=== PATIENT | male | born 1995 | race Caucasian/White ===

== ENCOUNTER 2018-07-27 08:46 | Emergency (ER) | payer BC ==
--- NOTE | 2018-07-27 09:07 | Emergency Department Record ---
History of Present Illness - General Chief Complaint: Shortness of breath Stated Complaint: SHORTNESS OF BREATH Time Seen by Provider: 07/27/18 09:00 Source: Patient, RN notes reviewed Mode of Arrival: Ambulatory - History of Present Illness Initial Comments: patient wake up to today with congestion with difficulty breathing and cough with yellow mucous and he never smoked cigs and he states he has had bronchitis before and allergy problems before. Onset/Timin -: Month(s) Consistency: Intermittent Improves With: Nothing Worsens With: Nothing Associated Symptoms: Cough Treatments Prior to Arrival: None - Related Data Home Oxygen Therapy: No Previous Rx's Medication Instructions Recorded Albuterol Sulfate [Ventolin Hfa] 1 - 2 puff IH .EVERY 4-6 HOURS PRN 07/27/18 #1 inhaler Azithromycin 250 mg PO DAILY #6 tablet 07/27/18 Fluticasone Propionate [Flonase] 2 spray EACH NARES DAILY #1 bottle 07/27/18 Allergies Allergy/AdvReac Type Severity Reaction Status Date / Time No Known Drug Allergies Allergy Verified 07/27/18 08:49 Travel Screening - Travel/Exposure Within Last 30 Days Have you traveled within the last 30 days?: No - Travel/Exposure Within Last Year Have you traveled outside the [place] in the last year?: No - Additonal Travel Details Have you been exposed to anyone with a communicable illness?: No - Travel Symptoms Symptom Screening: None Review of Systems Reviewed: No additional complaints except as noted below Constitutional: Reports: As per HPI. Denies: Chills, Fever, Malaise, Night sweats, Weakness, Weight change Eyes: Reports: As per HPI. Denies: Eye discharge, Eye pain, Photophobia, Vision change ENT: Reports: As per HPI, Congestion. Denies: Dental pain, Ear pain, Epistaxis , Hearing loss Respiratory: Reports: As per HPI, Cough. Denies: Dyspnea, Hemoptysis, Stridor, Wheezes Cardiovascular: Reports: As per HPI. Denies: Arrhythmia, Chest pain, Dyspnea on exertion, Edema, Murmurs, Orthopnea, Palpitations, Paroxysmal nocturnal dyspnea, Rheumatic Fever, Syncope Endocrine: Reports: As per HPI. Denies: Fatigue, Heat or cold intolerance, Polydipsia, Polyuria Gastrointestinal: Reports: As per HPI. Denies: Abdominal pain, Constipation, Diarrhea, Hematemesis, Hematochezia, Melena, Nausea, Vomiting Genitourinary: Reports: As per HPI. Denies: Dysuria, Frequency, Hematuria, Incontinence, Retention, Testicular pain, Testicular mass, Urgency Musculoskeletal: Reports: As per HPI. Denies: Arthralgia, Back pain, Gout, Joint swelling, Myalgia, Neck pain Skin: Reports: As per HPI. Denies: Bruising, Change in color, Change in hair/ nails, Lesions, Pruritus, Rash Neurological: Reports: As per HPI. Denies: Abnormal gait, Confusion, Headache, Numbness, Paresthesias, Seizure, Tingling, Tremors, Vertigo, Weakness Psychiatric: Reports: As per HPI. Denies: Anxiety, Auditory hallucinations, Depression, Homicidal thoughts, Suicidal thoughts, Visual hallucinations Hematological/Lymphatic: Reports: As per HPI. Denies: Anemia, Blood Clots, Easy bleeding, Easy bruising, Swollen glands Past Medical History - SOCIAL HISTORY Smoking Status: Never smoker Alcohol Use: None Drug Use: None - RESPIRATORY Hx Respiratory Disorders: No - CARDIOVASCULAR Hx Cardio Disorders: No - NEURO Hx Neuro Disorders: No - GI Hx GI Disorders: No - Hx Genitourinary Disorders: No - ENDOCRINE Hx Endocrine Disorders: No - MUSCULOSKELETAL Hx Musculoskeletal Disorders: No - PSYCH Hx Psych Problems: No - HEMATOLOGY/ONCOLOGY Hx Hematology/Oncology Disorders: No Family Medical History Any Significant Family History?: No Physical Exam - General General Appearance: Alert, Oriented x3, Cooperative, No acute distress - Head Head exam: Normal inspection - Eye Eye exam: Normal appearance, PERRL Pupils: Normal accommodation - ENT ENT exam: Mucous membranes moist, Normal external ear exam, TM's normal bilaterally, Other (mucous drainage down the back of his throat) Ear exam: Normal external inspection. negative: External canal tenderness Nasal Exam: Normal inspection. negative: Discharge, Sinus tenderness Mouth exam: Normal external inspection, Tongue normal Teeth exam: Normal inspection. negative: Dental caries Throat exam: Normal inspection. negative: Tonsillar erythema, Tonsillar exudate - Neck Neck exam: Normal inspection, Full ROM. negative: Tenderness - Respiratory Respiratory exam: Normal lung sounds bilaterally. negative: Respiratory distress - Cardiovascular Cardiovascular Exam: Regular rate, Normal rhythm, Normal heart sounds - GI/Abdominal GI/Abdominal exam: Soft, Normal bowel sounds. negative: Tenderness - Rectal Rectal exam: Deferred - exam: Deferred - Extremities Extremities exam: Normal inspection, Full ROM, Normal capillary refill. negative: Tenderness - Back Back exam: Reports: Normal inspection, Full ROM. Denies: Muscle spasm, Rash noted, Tenderness - Neurological Neurological exam: Alert, Normal gait, Oriented X3, Reflexes normal - Psychiatric Psychiatric exam: Normal affect, Normal mood - Skin Skin exam: Dry, Intact, Normal color, Warm Course Vital Signs 07/27/18 08:50 Temperature 98.2 F Pulse Rate 69 Respiratory 16 Rate Blood Pressure 131/83 Pulse Ox 97 Disposition Clinical Impression: Bronchitis Sinusitis Qualifiers: Sinusitis location: unspecified location Chronicity: acute Recurrence: non- recurrent Qualified Code(s): J01.90 - Acute sinusitis, unspecified Disposition: Home, Self-Care Condition: (1) Good Instructions: Sinusitis (ED), Acute Bronchitis (ED) Additional Instructions: follow up with family in 4 days Prescriptions: Albuterol Sulfate [Ventolin Hfa] 1 - 2 puff IH .EVERY 4-6 HOURS PRN #1 inhaler PRN Reason: Difficulty In Breathing Azithromycin 250 mg PO DAILY #6 tablet Fluticasone Propionate [Flonase] 2 spray EACH NARES DAILY #1 bottle Time of Disposition: 09:13 Quality - Quality Measures Quality Measures: N/A - Blood Pressure Screening Does Patient Have Any of the Following: No Blood Pressure Classification: Pre-Hypertensive BP Reading Systolic Measurement: 131 Diastolic Measurement: 83 Screening for High Blood Pressure: < Pre-Hypertensive BP, F/U Documented > [ G8950] Pre-Hypertensive Follow-up Interventions: Referral to alternative/primary care provider.
== END 2018-07-27 09:25 | disposition home or self-care (01) ==
LOC: ER 08:46
DX: J20.9 Acute bronchitis, unspecified (principal); J01.90 Acute sinusitis, unspecified
CPT/HCPCS: 99282

== ENCOUNTER 2019-02-01 14:42 | Emergency (ER) | payer BC ==
[2019-02-01] MEDS: IPRATROPIUM/ALBUTEROL (0.5MG/3MG) NEB INH ONE (14:51)
[2019-02-01] MEDS: AZITHROMYCIN 500 MG TABLET PO ONE (14:53)
[2019-02-01] MEDS: PREDNISONE 20 MG TAB PO ONE (14:53)
--- NOTE | 2019-02-01 14:53 | Emergency Department Record ---
History of Present Illness - General Chief Complaint: Difficulty Breathing Stated Complaint: SHORT OF BREATH Time Seen by Provider: 02/01/19 14:46 Source: Patient Mode of Arrival: Ambulatory Limitations: No limitations - History of Present Illness Initial Comments: 23 yo male presents with wheezing, coughing, productive yellow sputum. The onset was this morning. No fever. No blood in the sputum. He states he was normal yesterday. He has a history of wheezing with bronchitis requiring an inhaler several times in the past but states he has never formally been diagnosed with asthma. He does not smoke. No PCP. No NVD. No leg pain or swelling. MD Complaint: Cough, Shortness of breath -: Hour(s) Severity: Moderate Quality: Other Consistency: Constant Improves With: Nothing Worsens With: Coughing Known History Of: Other (Bronchitis with wheezing in his history) Context: Recent URI Associated Symptoms: Cough Treatments Prior to Arrival: None - Related Data Previous Rx's Medication Instructions Recorded Albuterol Sulfate [Ventolin Hfa] 1 - 2 puff IH .EVERY 4-6 HOURS PRN 07/27/18 #1 inhaler Fluticasone Propionate [Flonase] 2 spray EACH NARES DAILY #1 bottle 07/27/18 Albuterol Sulfate [Proair Hfa] 1 - 2 puff IH .EVERY 4-6 HOURS PRN 02/01/19 #1 inhaler Azithromycin 250 mg PO DAILY #4 tablet 02/01/19 Prednisone [Prednisone 20Mg] 20 mg PO BID #10 tab 02/01/19 Allergies Allergy/AdvReac Type Severity Reaction Status Date / Time No Known Drug Allergies Allergy Verified 02/01/19 14:51 Review of Systems Constitutional: Denies: Chills, Fever, Malaise, Weakness Eyes: Denies: Eye discharge, Eye pain, Photophobia, Vision change ENT: Reports: Congestion. Denies: Ear pain, Throat pain Respiratory: Reports: Cough, Dyspnea, Wheezes. Denies: Hemoptysis, Stridor Cardiovascular: Denies: Chest pain, Palpitations, Syncope Endocrine: Denies: Fatigue, Polydipsia, Polyuria Gastrointestinal: Denies: Abdominal pain, Diarrhea, Nausea, Vomiting Genitourinary: Denies: Dysuria, Frequency, Hematuria Musculoskeletal: Denies: Arthralgia, Back pain, Myalgia Skin: Denies: Bruising, Change in color, Rash Neurological: Denies: Confusion, Headache Psychiatric: Denies: Anxiety Hematological/Lymphatic: Denies: Blood Clots, Easy bleeding, Easy bruising, Swollen glands Past Medical History - SOCIAL HISTORY Smoking Status: Never smoker Drug Use: None - RESPIRATORY Hx Respiratory Disorders: No - CARDIOVASCULAR Hx Cardio Disorders: No - NEURO Hx Neuro Disorders: No - GI Hx GI Disorders: No - Hx Genitourinary Disorders: No - ENDOCRINE Hx Endocrine Disorders: No - MUSCULOSKELETAL Hx Musculoskeletal Disorders: No - PSYCH Hx Psych Problems: No - HEMATOLOGY/ONCOLOGY Hx Hematology/Oncology Disorders: No Physical Exam - General General Appearance: Alert, Oriented x3, Cooperative, No acute distress, Other ( No distress, normal work of breathing, no conversational dyspnea) Limitations: No limitations - Head Head exam: Atraumatic, Normal inspection - Eye Eye exam: Normal appearance, PERRL. negative: Conjunctival injection, Scleral icterus - ENT ENT exam: Normal exam, Mucous membranes moist, Normal orophraynx Ear exam: Normal external inspection Nasal Exam: Normal inspection Mouth exam: Normal external inspection Teeth exam: Normal inspection Throat exam: Normal inspection. negative: Tonsillar erythema, Tonsillomegaly, Tonsillar exudate, R peritonsillar mass, L peritonsillar mass - Neck Neck exam: Normal inspection. negative: Lymphadenopathy, Tenderness - Respiratory Respiratory exam: Decreased breath sounds, Prolonged expiratory, Wheezes. negative: Normal lung sounds bilaterally, Accessory muscle use, Chest wall tenderness, Rales, Respiratory distress, Rhonchi, Stridor - Cardiovascular Cardiovascular Exam: Regular rate, Normal rhythm, Normal heart sounds - GI/Abdominal GI/Abdominal exam: Soft. negative: Tenderness - Rectal Rectal exam: Deferred - exam: Deferred - Back Back exam: Reports: Normal inspection, Full ROM. Denies: Muscle spasm, Rash noted, Tenderness - Neurological Neurological exam: Alert, Normal gait, Oriented X3 - Psychiatric Psychiatric exam: Normal affect, Normal mood - Skin Skin exam: Dry, Intact, Normal color, Warm Course - Reevaluation(s) Reevaluation #1: 02/01/19 15:19 The CXR was read as negative for acute process The patient was rechecked. The wheezing was gone on recheck. Calm respirations, non labored Disposition Disposition: Discharge Clinical Impression: Asthmatic bronchitis Qualifiers: Asthma severity: mild Asthma persistence: intermittent Asthma complication type : uncomplicated Qualified Code(s): J45.20 - Mild intermittent asthma, uncomplicated Disposition: Home, Self-Care Condition: (1) Good Instructions: Acute Bronchitis (ED) Additional Instructions: Call your doctor for the next available follow up appointment Return to the ER for a recheck if worse, any new concerns or questions Take the prescriptions provided as directed Review this ER visit and the tests performed with your family doctor Prescriptions: Albuterol Sulfate [Proair Hfa] 1 - 2 puff IH .EVERY 4-6 HOURS PRN #1 inhaler PRN Reason: Difficulty In Breathing Azithromycin 250 mg PO DAILY #4 tablet Prednisone [Prednisone 20Mg] 20 mg PO BID #10 tab Referrals: EMERY COLLINS M.D. [MEDICAL DOCTOR] - Forms: Patient Portal Access Time of Disposition: 15:22 Quality - Quality Measures Quality Measures: N/A - Blood Pressure Screening Does Patient Have Any of the Following: No Blood Pressure Classification: Pre-Hypertensive BP Reading Systolic Measurement: 138 Diastolic Measurement: 89 Screening for High Blood Pressure: < Pre-Hypertensive BP, F/U Documented > [ G8950] Pre-Hypertensive Follow-up Interventions: Referral to alternative/primary care provider.
[2019-02-01 15:30] LABS: INFLUENZA A NEGATIVE (NEGATIVE); INFLUENZA B NEGATIVE (NEGATIVE)
--- NOTE | 2019-02-04 12:24 | RADIOLOGY REPORT ---
EXAM: CHEST, TWO VIEWS HISTORY: COUGH, WHEEZING, AND SHORTNESS OF BREATH. TECHNIQUE: Two views of the chest were obtained. FINDINGS: The cardiomediastinal silhouette is unremarkable. The lungs and pleural spaces are clear. IMPRESSION: NO ACUTE CARDIOPULMONARY ABNORMALITY. JOB NUMBER: [id number] MTDD
== END 2019-02-01 15:28 | disposition home or self-care (01) ==
LOC: ER 14:42
DX: J45.20 Mild intermittent asthma, uncomplicated (principal)
CPT/HCPCS: 99283; 99284; 87400; 71046; 94640; J7512

== ENCOUNTER 2019-11-24 10:31 | Emergency (ER) | payer BC ==
[2019-11-24] MEDS ORDERED: ACETAMINOPHEN 500 MG TABLET PO ONE (11:22)
[2019-11-24 11:25] LABS: INFLUENZA A NEGATIVE (NEGATIVE); INFLUENZA B POSITIVE (NEGATIVE)
--- NOTE | 2019-11-24 12:11 | Emergency Department Record ---
History of Present Illness - General Chief Complaint: Fever Stated Complaint: FEVER/KULKARNI Time Seen by Provider: 11/24/19 11:13 Source: Patient Mode of Arrival: Ambulatory Limitations: No limitations - History of Present Illness Initial Comments: pt has had fever, kulkarni, cough, congestion,body aches for 2 days Complaint: Fever Onset/Timin -: Days(s) Temperature Source: Subjective Context: Sick contacts Associated Symptoms: Cough, Nasal congestion, Rhinorrhea Treatments Prior to Arrival: Ibuprofen - Related Data Previous Rx's Medication Instructions Recorded Albuterol Sulfate [Ventolin Hfa] 1 - 2 puff IH .EVERY 4-6 HOURS PRN 07/27/18 #1 inhaler Fluticasone Propionate [Flonase] 2 spray EACH NARES DAILY #1 bottle 07/27/18 Albuterol Sulfate [Proair Hfa] 1 - 2 puff IH .EVERY 4-6 HOURS PRN 02/01/19 #1 inhaler Oseltamivir Phosphate [Tamiflu] 75 mg PO BID #10 capsule 11/24/19 Allergies Allergy/AdvReac Type Severity Reaction Status Date / Time No Known Drug Allergies Allergy Verified 11/24/19 11:01 Travel Screening - Travel/Exposure Within Last 30 Days Have you traveled within the last 30 days?: No - Travel/Exposure Within Last Year Have you traveled outside the [place] in the last year?: No - Additonal Travel Details Have you been exposed to anyone with a communicable illness?: No - Travel Symptoms Symptom Screening: None Review of Systems Reviewed: No additional complaints except as noted below Constitutional: Reports: As per HPI, Chills, Fever. Denies: Malaise, Night sweats, Weakness, Weight change Eyes: Reports: As per HPI. Denies: Eye discharge, Eye pain, Photophobia, Vision change ENT: Reports: As per HPI, Congestion. Denies: Dental pain, Ear pain, Epistaxis, Hearing loss, Throat pain Respiratory: Reports: As per HPI, Cough. Denies: Dyspnea, Hemoptysis, Stridor, Wheezes Cardiovascular: Reports: As per HPI. Denies: Arrhythmia, Chest pain, Dyspnea on exertion, Edema, Murmurs, Orthopnea, Palpitations, Paroxysmal nocturnal dyspnea, Rheumatic Fever, Syncope Endocrine: Reports: As per HPI. Denies: Fatigue, Heat or cold intolerance, Polydipsia, Polyuria Gastrointestinal: Reports: As per HPI. Denies: Abdominal pain, Constipation, Diarrhea, Hematemesis, Hematochezia, Melena, Nausea, Vomiting Genitourinary: Reports: As per HPI. Denies: Dysuria, Frequency, Hematuria, Incontinence, Retention, Testicular pain, Testicular mass, Urgency Musculoskeletal: Reports: As per HPI. Denies: Arthralgia, Back pain, Gout, Joint swelling, Myalgia, Neck pain Skin: Reports: As per HPI. Denies: Bruising, Change in color, Change in hair/nails, Lesions, Pruritus, Rash Neurological: Reports: As per HPI. Denies: Abnormal gait, Confusion, Headache, Numbness, Paresthesias, Seizure, Tingling, Tremors, Vertigo, Weakness Psychiatric: Reports: As per HPI. Denies: Anxiety, Auditory hallucinations, Depression, Homicidal thoughts, Suicidal thoughts, Visual hallucinations Hematological/Lymphatic: Reports: As per HPI. Denies: Anemia, Blood Clots, Easy bleeding, Easy bruising, Swollen glands Past Medical History - SOCIAL HISTORY Smoking Status: Never smoker Alcohol Use: None Drug Use: None - RESPIRATORY Hx Respiratory Disorders: No Hx Asthma: Yes (seasonal) Hx Bronchitis: Yes - CARDIOVASCULAR Hx Cardio Disorders: No - NEURO Hx Neuro Disorders: No - GI Hx GI Disorders: No - Hx Genitourinary Disorders: No - ENDOCRINE Hx Endocrine Disorders: No - MUSCULOSKELETAL Hx Musculoskeletal Disorders: No - PSYCH Hx Psych Problems: No - HEMATOLOGY/ONCOLOGY Hx Hematology/Oncology Disorders: No Family Medical History Any Significant Family History?: Yes Physical Exam - General General Appearance: Alert, Oriented x3, Cooperative, No acute distress - Head Head exam: Normal inspection - Eye Eye exam: Normal appearance, PERRL, EOMI Pupils: Normal accommodation - ENT ENT exam: Normal exam, Mucous membranes moist, Normal external ear exam, Normal orophraynx Ear exam: Normal external inspection. negative: External canal tenderness Nasal Exam: Normal inspection. negative: Discharge, Sinus tenderness Mouth exam: Normal external inspection, Tongue normal Teeth exam: Normal inspection. negative: Dental caries Throat exam: Normal inspection. negative: Tonsillar erythema, Tonsillar exudate - Neck Neck exam: Normal inspection, Full ROM. negative: Tenderness - Respiratory Respiratory exam: Normal lung sounds bilaterally. negative: Respiratory d istress - Cardiovascular Cardiovascular Exam: Regular rate, Normal rhythm, Normal heart sounds - GI/Abdominal GI/Abdominal exam: Soft, Normal bowel sounds. negative: Tenderness - Rectal Rectal exam: Deferred - exam: Deferred - Extremities Extremities exam: Normal inspection, Full ROM, Normal capillary refill. negative: Tenderness - Back Back exam: Reports: Normal inspection, Full ROM. Denies: Muscle spasm, Rash noted, Tenderness - Neurological Neurological exam: Alert, Normal gait, Oriented X3, Reflexes normal - Psychiatric Psychiatric exam: Normal affect, Normal mood - Skin Skin exam: Dry, Intact, Normal color, Warm Course Vital Signs 11/24/19 10:54 Temperature 99.3 F Pulse Rate 92 H Respiratory 18 Rate Blood Pressure 114/76 Pulse Ox 96 Medical Decision Making - Lab Data Lab Results 11/24/19 Range/Units 11:07 Influenza Type A Ag Negative (NEGATIVE) Influenza Type B Ag Positive H (NEGATIVE) Disposition Disposition: Discharge Clinical Impression: Influenza B Disposition: Home, Self-Care Condition: (1) Good Instructions: Fever in Adults (ED), Influenza (ED) Additional Instructions: follow up with family doctor. return sooner if worse. push fluids. tylenol and motrin as needed Prescriptions: Oseltamivir Phosphate [Tamiflu] 75 mg PO BID #10 capsule Forms: Patient Portal Access, Return to Work/School Quality - Quality Measures Quality Measures: N/A - Blood Pressure Screening Does Patient Have Any of the Following: No Blood Pressure Classification: Normal BP Reading Systolic Measurement: 114 Diastolic Measurement: 76 Screening for High Blood Pressure: < Normal BP, F/U Not Required > [G8783]
--- NOTE | 2019-11-24 12:20 | RADIOLOGY REPORT ---
EXAMINATION: Two View Chest Radiographs EXAM DATE: 11/24/2019 11:50 AM TECHNIQUE: PA and lateral views. INDICATION: cough COMPARISON: 02/01/2019 ENCOUNTER: Not applicable FINDINGS: The heart is normal in size. There is no pulmonary vascular congestion. The hilar and mediastinal con tours appear stable. No effusion, pneumothorax or acute pulmonary process is seen. IMPRESSION: Negative for acute cardiopulmonary process. No significant change from 02/01/2019. Dictated by: Kirby Lowe MD on 11/24/2019 12:17 PM. .
== END 2019-11-24 12:41 | disposition home or self-care (01) ==
LOC: ER 10:31
DX: J10.1 Influenza due to other identified influenza virus with other respiratory manifestations (principal)
CPT/HCPCS: 71046; 87400; 99283